=== PATIENT | female | born 1995 | race African-American/Black ===

== ENCOUNTER 2019-11-28 01:27 | Emergency (ER) | payer BC, OTHER ==
--- NOTE | 2019-11-28 01:40 | PDOC ---
Rapid Medical Evaluation Medical Evaluation: Allergies Allergy/AdvReac Type Severity Reaction Status Date / Time No Known Allergies Allergy Unverified 08/15/14 04:57 11/28/19 01:38 24 year old female 2-4 weeks unknown LMP with RLQ pain without bleeding however endorses discharge. PE: Differed to provider Plan: TVUS TS HCG CBC CMP Pt to precede to the Ed for further eval
--- NOTE | 2019-11-28 01:45 | PDOC ---
Attending Attestation - Resident Resident Name: Paul Cardenas - ED Attending Attestation I have performed the following: I have examined & evaluated the patient, The case was reviewed & discussed with the resident, I agree w/resident's findings & plan - HPI HPI: 11/28/19 03:16 see resident hpi - Physicial Exam PE: 11/28/19 03:16 see resident exam - Medical Decision Making 11/28/19 03:16 24-year-old female with right-sided pelvic pain Ultrasound shows a live approximate 6-week IUP with heart rate of 112 There is a small right-sided ovarian cyst as well Patient has minimal discomfort with no tenderness on exam Plan for reevaluation after labs reviewed with discharge home if there are no secondary indicators of appendicitis IV fluid 1 L bolus given Discharge - Discharge Information Problems reviewed: Yes Clinical Impression/Diagnosis: Pelvic pain affecting - Follow up/Referral - Patient Discharge Instructions - Post Discharge Activity
[2019-11-28 01:46] VITALS: BP 144/84; PULSE 76; TEMP 98.3; BMI 24.2
--- OUTSIDE RECORDS SUMMARY | 2019-11-28 01:49 | XMS ---
:1995 Author Organization [facility] Care Team Providers Name Role Phone THERESA LIPSCOMB Unavailable Unavailable Re-disclosure Warning The records that you are about to access may contain information from federally- assisted alcohol or drug abuse programs. If such information is present, then the following federally mandated warning applies: This information has been disclosed to you from records protected by federal confidentiality rules (42 CFR part 2). The federal rules prohibit you from making any further disclosure of this information unless further disclosure is expressly permitted by the written consent of the person to whom it pertains or as otherwise permitted by 42 CFR part 2. A general authorization for the release of medical or other information is NOT sufficient for this purpose. The Federal rules restrict any use of the information to criminally investigate or prosecute any alcohol or drug abuse patient.The records that you are about to access may contain highly sensitive health information, the redisclosure of which is protected by Article 27-F of the [facility] Public Health law. If you continue you may haveaccess to information: Regarding HIV / AIDS; Provided by facilities licensed or operated by the [facility] Office of Mental Health; or Provided by the [facility] Office for People With Developmental Disabilities. If such information is present, then the following [facility] mandated warning applies: This information has been disclosed to you from confidential records which are protected by state law. State law prohibits you from making any further disclosure of this information without the specific written consent of the person to whom it pertains, or as otherwise permitted by law. Any unauthorized further disclosure in violation of state law may result in a fine or senior living sentence or both. A general authorization for the release of medical or other information is NOT sufficient authorization for further disclosure. Encounters Encounter Providers Location Date Indications Data Source(s ) Outpatient Attender: DEISI 07/04/2019 Z01.84 [facility] THERESA ValverdeAdmitter: 02:19:00 PM [facility] THERESA LIPSCOMB EDT Corporatio n AbramReferrer: THERESA LIPSCOMB Z01.84 Insurance Providers Payer name Policy type Policy ID Covered Covered alliance party's Policy P derick / Coverage alliance party ID relationship to García Inf ormation type garcía [employer] [id number] [place] [id number] EXCHANGE 92 Problems, Conditions, and Diagnoses Code Display Name Description Problem Type Effective Dates Data Source(s) Z01.84 Encounter for ENCOUNTER FOR Diagnosis 07/04/2019 [facility] antibody response ANTIBODY RESPONSE 02:19:00 PM EDT [facility] examination EXAMINATION Care Corpora tion
--- NOTE | 2019-11-28 02:10 | PDOC ---
History of Present Illness - General Chief Complaint: Pain Stated Complaint: ABD PAIN Time Seen by Provider: 11/28/19 01:45 - History of Present Illness Initial Comments: 11/28/19 02:09 HPI: 24 y/o F with no pmh with +home preg test 2 weeks ago presenting with RLQ pain x1 week. Pain feels burning and is non radiating. She denies any inciting event, exercise, trauma, exercise. Pain has no alleviating or exacerbating facto rs. Reports no prior episodes. She's worried about an ectopic. She denies fever, chills, nausea vomiting, JO, dysuria, vaginal bleeding. She reports baseline vaginal discharge that is currently unchanged. Of note, patient is newly sexually active. PMHx: as noted above ROS: as noted SHx: Denies tobacco use; no alcohol use; no rec drugs Allergies: NKDA ROS: GENERAL/CONSTITUTIONAL: No fever or chills. No weakness. HEAD, EYES, EARS, NOSE AND THROAT: No change in vision. No ear pain or discharg e. No sore throat. CARDIOVASCULAR: No chest pain or shortness of breath RESPIRATORY: No cough, wheezing, or hemoptysis. GASTROINTESTINAL: No nausea, vomiting, diarrhea or constipation. GENITOURINARY: No dysuria, frequency, or change in urination. MUSCULOSKELETAL: No joint or muscle swelling or pain. No neck or back pain. SKIN: No rash NEUROLOGIC: No headache, vertigo, loss of consciousness, or change in strength/sensation. ENDOCRINE: No increased thirst. No abnormal weight change HEMATOLOGIC/LYMPHATIC: No anemia, easy bleeding, or history of blood clots. ALLERGIC/IMMUNOLOGIC: No hives or skin allergy. PE: GENERAL: Awake, alert, and fully oriented, no acute distress HEAD: No signs of trauma, normocephalic, atraumatic EYES: EOMI, sclera anicteric, conjunctiva clear ENT: Auricles normal inspection, hearing grossly normal, nares patent, oropharynx clear without exudates. Moist mucosa NECK: Normal ROM, no lymphadenopathy LUNGS: No increased work of breathing, symmetrical chest rise, clear to auscultation bilaterally, no wheezes, crackles or rhonchi HEART: Regular rate, regular rhythm, normal S1 and S2, no murmur, peripheral pulses 2+ and equal bilaterally. ABDOMEN: Soft, nondistended, nontender. No guarding, no rebound. No masses. No CVAT : Nml appearing external genitalia, with absent lesions. Vaginal vault without blood; yellow/green discharge present with inflamed cervical os but not friable. Neg CMT on BM. Neg adenexal ttp, or mass palpated MUSCULOSKELETAL: FROM NEUROLOGICAL: Cranial nerves II through XII grossly intact. Normal speech, stable gait, no focal sensorimotor deficits SKIN: Warm, Dry, normal turgor, no rashes or lesions noted Past History - Medical History Allergies/Adverse Reactions: Allergies Allergy/AdvReac Type Severity Reaction Status Date / Time No Known Allergies Allergy Verified 11/28/19 01:41 Home Medications: Ambulatory Orders Amoxicillin - [Amoxicillin 500mg Capsule -] 500 mg PO TID 08/15/14 Ciprofloxacin [Cipro -] 500 mg PO Q12H #14 tablet 08/15/14 Neomy/Polymyx/Hc Ped Otic Susp [Pediotic] 7.5 ml AD DAILY 08/15/14 Tramadol HCl 50 mg PO TID PRN #12 tablet 08/15/14 - Reproductive History Is Patient Now?: No - Psycho-Social/Smoking History Smoking History: Never smoked Information on smoking cessation initiated: No - Substance Abuse Hx (Audit-C & DAST Scrn) How often the patient has a drink containing alcohol: Never Score: In Men: 4 or > Positive; In Women: 3 or > Positive: 0 Screen Result (Pos requires Nsg. Audit-10AR): Negative In the last yr the pt used illegal drug/Rx for NonMed reason: No Score: Yes response is considered Positive: 0 Screen Result (Positive result requires Nsg. DAST-10): Negative *Physical Exam - Vital Signs Last Vital Signs Temp Pulse Resp BP Pulse Ox 98.3 F 76 20 144/84 100 11/28/19 01:40 11/28/19 01:40 11/28/19 01:40 11/28/19 01:40 11/28/19 01:40 ED Treatment Course - LABORATORY CBC & Chemistry Diagram: 11/28/19 02:50 11/28/19 02:50 Medical Decision Making - Medical Decision Making 11/28/19 03:59 24 y/o F with no pmh with +home preg test 2 weeks ago presenting with RLQ pain x1 week. VSS, AF. PE with yellow/green discharge present with inflamed cervical os but not friable. DDx includes uti, GC Chlam, ectopic, toa -cbc, cmp, t&s, bhcg, ua -tvus -ivf; will treat for GC/chlam and trich with 250 IM ceftr, 1g azithro, 2g flagyl 11/28/19 06:48 UCX SENT patient with emesis following abx but no discrete pills found in vomit; will dc with return pcnxs and to followup resutls Discharge - Discharge Information Problems reviewed: Yes Clinical Impression/Diagnosis: Pelvic pain affecting Condition: Stable Disposition: HOME - Follow up/Referral Referrals: Yovany Trimble MD [Staff Physician] - Elaine Le MD [Staff Physician] - - Patient Discharge Instructions Patient Printed Discharge Instructions: DI for Pelvic Pain Additional Instructions: Additional Instructions: Please return to the emergency department with any new or worsening symptoms or concerns. Please follow up with your primary care physician within 72 hours. [facility]up with [facility] your decision to terminate to the . We recommend also following up with an ObGyn that we have included in your packet. We recommend your take a daily vitamin - Post Discharge Activity
[2019-11-28 03:03] LABS: BASO % 0.5 % (0-2.0); HEMATOCRIT 36.7 % (32.4-45.2); LYMPH % 33.9 % (8-40); MCH 26.1 pg (25.7-33.7); MCHC 32.8 g/dl (32.0-36.0); MEAN CELL VOLUME 79.4 fl (80-96); MEAN PLT VOLUME 7.8 fl (7.5-11.1); NEUT % 57.6 % (42.8-82.8); PLATELET COUNT 265 K/MM3 (134-434); RBC 4.62 M/mm3 (3.60-5.2); RDW 14.3 % (11.6-15.6)
[2019-11-28] MEDS ORDERED: SODIUM CHLORIDE 1,000 ML IV SCH (03:30)
[2019-11-28 03:32] LABS: BILIRUBIN,TOTAL 0.3 mg/dL (0.2-1); BLOOD UREA NITROGEN 6.4 mg/dL (7-18); CALCIUM 9.3 mg/dL (8.5-10.1); CREATININE 0.7 mg/dL (0.55-1.3); POTASSIUM 3.6 mmol/L (3.5-5.1); TOT PROT 7.9 g/dl (6.4-8.2)
[2019-11-28] MEDS ORDERED: AZITHROMYCIN 250 MG TABLET PO ONE (03:48)
[2019-11-28] MEDS ORDERED: metroNIDAZOLE 250 MG TABLET PO ONE (03:48)
[2019-11-28 04:02] LABS: EPI CELLS >36 /uL (0-25.1); HYALINE CASTS 20 /uL (0-3.1); PH,URINE 5.5 (5.0-8.0); URINE APPEARANCE CLOUDY; URINE BACTERIA 7216 /uL (0-1359); URINE BILIRUBIN NEGATIVE (NEGATIVE); URINE COLOR YELLOW; URINE GLUCOSE (UA) NEGATIVE (NEGATIVE); URINE KETONE TRACE (NEGATIVE); URINE LEUK ESTERASE 3+ (NEGATIVE); URINE NITRITE NEGATIVE (NEGATIVE); URINE PROTEIN TRACE (NEGATIVE); URINE WBC 489 /uL (0-25.8)
[2019-11-28] MEDS ORDERED: AZITHROMYCIN 250 MG TABLET ONE (04:04)
[2019-11-28] MEDS ORDERED: ACETAMINOPHEN 500 MG TABLET (FP) PO ONE (05:13)
[2019-11-28] MEDS ORDERED: ONDANSETRON *ODT* 4 MG TABLET SL ONE (05:13)
[2019-11-28] MEDS ORDERED: ACETAMINOPHEN 325 MG TABLET (FP) ONE (05:29)
[2019-11-28] MEDS ORDERED: ONDANSETRON *ODT* 4 MG TABLET ONE (05:29)
[2019-11-28 10:20] LABS: URINE RBC 24.1 /uL (0-23.9)
== END 2019-11-28 05:52 | disposition home or self-care (01) ==
LOC: JER 01:27
DX: O26.891 Other specified pregnancy related conditions, first trimester (principal); Z3A.01 Less than 8 weeks gestation of pregnancy
CPT/HCPCS: 36415; 76817-TC; 80053; 81003; 84702; 85025; 86850; 86900; 86901; 87070; 87086; 87205; 87491; 87591; 99284-25; Q0162

== ENCOUNTER 2023-06-01 21:58 | Emergency (ER) | payer SELFPAY ==
[2023-06-01 22:08] VITALS: BP 150/87; PULSE 92; RESP 18; TEMP 98.7; BMI 25.2
[2023-06-01] MEDS: IBUPROFEN 600 MG TABLET (FP) PO ONE (22:44)
[2023-06-01] MEDS ORDERED: IBUPROFEN 600 MG TABLET (FP) PO ONE (22:45)
[2023-06-01] MEDS ORDERED: AMOXICILLIN 500 MG CAPSULE (FP) ONE (22:50)
[2023-06-01 22:56] LABS: EPI CELLS 16 /uL (0-25.1); HYALINE CASTS 0 /uL (0-3.1); URINE APPEARANCE CLEAR; URINE BACTERIA 82 /uL (0-1359); URINE BILIRUBIN NEGATIVE (NEGATIVE); URINE COLOR YELLOW; URINE GLUCOSE (UA) NEGATIVE (NEGATIVE); URINE KETONE NEGATIVE (NEGATIVE); URINE LEUK ESTERASE 1+ (NEGATIVE); URINE NITRITE NEGATIVE (NEGATIVE); URINE PROTEIN NEGATIVE (NEGATIVE); URINE RBC 29 /uL (0-23.9); URINE UROBILINOGEN 0.2 mg/dL (0.2-1.0); URINE WBC 12 /uL (0-25.8)
[2023-06-01] MEDS: AMOXICILLIN 500 MG CAPSULE (FP) PO ONE (22:58)
[2023-06-01] MEDS ORDERED: AZITHROMYCIN 250 MG TABLET ONE (23:00)
[2023-06-01] MEDS: AZITHROMYCIN 500 MG TABLET PO ONE (23:01)
[2023-06-01 23:03] LABS: THROAT:GRP A STREP NOT DETECTED (NOTDETECTED)
[2023-06-01] MEDS ORDERED: FLUCONAZOLE 150 MG TABLET PO ONE (23:05)
[2023-06-01] MEDS: FLUCONAZOLE 50 MG TABLET PO ONE (23:07)
== END 2023-06-01 23:23 | disposition home or self-care (01) ==
LOC: JER 21:58 → JERFT 21:58 → JER 23:23
DX: R05.9 Cough, unspecified (principal); M79.10 Myalgia, unspecified site; R11.0 Nausea; R19.7 Diarrhea, unspecified; J02.9 Acute pharyngitis, unspecified; N76.0 Acute vaginitis; N89.8 Other specified noninflammatory disorders of vagina; J03.90 Acute tonsillitis, unspecified; N72 Inflammatory disease of cervix uteri; Z20.822 Contact with and (suspected) exposure to COVID-19
CPT/HCPCS: 0241U-QW; 36415; 81003; 84703; 87070; 87077; 87086; 87205; 87491; 87591; 87651; 87661; 99284-25

== ENCOUNTER 2024-02-22 16:06 | Emergency (ER) | payer BC ==
[2024-02-22 16:24] VITALS: BP 115/85; PULSE 79; RESP 18; TEMP 98.2; BMI 24.8
[2024-02-22 17:58] LABS: BASO % 0.4 % (0-2.0); EOS % 2.3 % (0-4.5); HEMATOCRIT 39.3 % (32.4-45.2); HEMOGLOBIN 12.7 GM/dL (10.7-15.3); LYMPH % 40.1 % (8-40); MCH 25.9 pg (25.7-33.7); MCHC 32.4 g/dl (32.0-36.0); MEAN CELL VOLUME 80.1 fl (80-96); MEAN PLT VOLUME 7.4 fl (7.5-11.1); MONO % 8.4 % (3.8-10.2); NEUT % 48.8 % (42.8-82.8); PLATELET COUNT 313 10^3/uL (134-434); RDW 13.7 % (11.6-15.6); WHITE BLOOD COUNT 6.3 K/mm3 (4.0-10.0)
[2024-02-22 18:03] LABS: EPI CELLS 12 /uL (0-25.1); HYALINE CASTS 0 /uL (0-3.1); URINE APPEARANCE CLEAR; URINE BACTERIA 757 /uL (0-1359); URINE BILIRUBIN NEGATIVE (NEGATIVE); URINE COLOR YELLOW; URINE GLUCOSE (UA) NEGATIVE (NEGATIVE); URINE KETONE NEGATIVE (NEGATIVE); URINE LEUK ESTERASE TRACE (NEGATIVE); URINE NITRITE NEGATIVE (NEGATIVE); URINE PROTEIN NEGATIVE (NEGATIVE); URINE RBC 6 /uL (0-23.9); URINE UROBILINOGEN 0.2 mg/dL (0.2-1.0); URINE WBC 5 /uL (0-25.8)
[2024-02-22 18:34] LABS: POTASSIUM 4.3 mmol/L (3.5-5.1)
[2024-02-22 18:36] LABS: CALCIUM 9.4 mg/dL (8.5-10.1)
[2024-02-22 18:37] LABS: BLOOD UREA NITROGEN 11.1 mg/dL (7-18)
[2024-02-22 18:40] LABS: CREATININE 0.8 mg/dL (0.55-1.3)
[2024-02-22 18:41] LABS: BILIRUBIN,TOTAL 0.4 mg/dL (0.2-1)
== END 2024-02-22 20:55 | disposition home or self-care (01) ==
LOC: JER 16:06
DX: K62.89 Other specified diseases of anus and rectum (principal); G89.29 Other chronic pain
CPT/HCPCS: 36415; 74177-TC; 80053; 81003; 84703; 85025; 87086; 99285-25; Q9967